=== PATIENT | female | born 1950 | race African-American/Black ===

== ENCOUNTER 2021-08-31 02:37 | Day surgery (SDC) | payer OTHER, SELFPAY ==
--- NOTE | 2021-08-25 09:46 | PC.NURSE ---
Report to the Outpatient Waiting Room, entrance under the green pavilion located off [facility], at time __0930 on date _08/31/21 . OR Time: _1130 . - You and your visitor will be asked a series of questions to screen for COVID 19 for your protection. - Only one visitor is allowed at this time. - The patient visitor is requested to leave or wait in car when not with patient. - A mask is required within the hospital. Patients may have clear liquids (water, carbonated beverages, clear teas, apple juice) until 3 hours prior to surgery with a maximum of 20 ounces. - No food from midnight until time of surgery - Infants may have breast milk until 4 hours before surgery, infant formula 6 hours prior to surgery. - Children will be allowed to drink immediately following surgery. If applicable, please bring a bottle or sippy cup to assist with drinking. Juice, water, soda, and popsicles are readily available. For infants on formula, please bring formula the day of surgery. Pacifiers are allowed. Take the following medications with a SIP of water the morning of surgery: __FELODIPINE,TIMOLOL EYE DROP, Medications to discontinue per physician ____ALL VITAMINS AND SUPPLEMENTS 3 DAYS PRE OP Date to take last dose__08/27/21 Please no make-up, nail [place], hairspray, perfume, deodorant, or body powder the day of surgery. No jewelry (including any body piercings) or valuables the day of surgery, leave them at home. Please take a shower or bath the night before, or the morning of, surgery with an antibacterial soap. Wear comfortable, loose fitting clothing. Children are encouraged to wear pajamas. - Jewelry must be removed prior to entering the operating room. Rings and piercings that are not removed may be cut off. - The hospital will not accept responsibility for valuables. - Please leave all valuables, including medications, at home the day of surgery. If you are going home after surgery, a licensed tram driver must drive you home. - NO public transportation without another adult. - We recommend that an adult stay with you for 24 hours following discharge. - We also recommend that you do not drive, make important decision, drink alcoholic beverages, or take any drugs that were not prescribed by your health care provider for at least 24 hours after your discharge time. For Pediatric surgeries, we recommend two adults accompany the child home (only one inside the building at this time). Follow any additional instructions given to you from your surgeon. If you or anyone in your household have experienced Covid symptoms in the past week, please notify your surgeon or the nurse liaison at the phone number below for possible testing. Telephone instructions given to _PATIENT and asked if any additional questions and then verbalized understanding. Patient advised to call surgeon office or pre surgery nurse liaison [phone] if any additional questions.
[2021-08-25 10:49] VITALS: BMI 33.8
--- NOTE | 2021-08-31 08:35 | WPDHPUPDATE1 ---
History and Physical Update Update Date/Time: 08/31/21 08:35 History and Physical has been reviewed, including an updated exam of the patient. There are NO changes in the patient's condition. Risks, benefits, and alternatives have been discussed and questions answered. Patient agrees to proceed with procedure.
--- NOTE | 2021-08-31 08:35 | PM.HPGS ---
History of Present Illness History of Present Illness Consent: Risks, benefits, and alternatives have been discussed and questions answered. Patient agrees to proceed with procedure. Chief complaint: post menopausal bleeding Narrative: Julia Ramirez is a 71 year old female with an episode of vaginal bleeding in late July. Patient also had uterine cramping. The bleeding lasted for 3 days and was light. It was recommended to proceed with D&C hysteroscopy. Risks of infection, bleeding, perforation, and possible pathology were reviewed. Risks were accepted and patient agrees to proceed. Patient did receive preoperative clearance from her primary physician Dr. Jang. Review of Systems Constitutional: Constitutional: Reports headache(s) Respiratory: Respiratory: Reports cough and Reports wheezing Gastrointestinal: Gastrointestinal: Reports constipation and Reports nausea Genitourinary: Genitourinary: Reports urinary incontinence Musculoskeletal: Musculoskeletal: Reports back pain and Reports arthralgias [facility] Past Medical History Medical History (Updated 08/31/21 @ 08:43 by Prema Myers MD) Atrial fibrillation Congestive heart failure COPD (chronic obstructive pulmonary disease) GERD (gastroesophageal reflux disease) HTN (hypertension) Hyperlipidemia Interstitial cystitis Mitral valve prolapse (normal spontaneous vaginal delivery) X3 Sleep apnea Surgical History Surgical History (Updated 08/31/21 @ 08:41 by Prema Myers MD) H/O laparoscopy History of hysteroscopy 2005 and 2007 S/P breast biopsy, bilateral 2001 resulting in left lymphedema Social History Social History Smoking status: Never smoker Living arrangements: with family Spiritual care concerns: No Meds Home Medications and Allergies Home Medications Medication Instructions Recorded Confirmed Type albuterol sulfate 90 mcg/actuation 2 puff inhalation QID PRN 08/25/21 08/25/21 History aerosol inhaler (ProAir HFA) Shortness Of Breath aspirin 81 mg tablet,delayed 81 mg PO HS 08/25/21 08/25/21 History release atenolol 50 mg tablet 0.5 tablet PO HS 08/25/21 08/25/21 History atenolol 50 mg-chlorthalidone 25 1 tablet PO QAM 08/25/21 08/25/21 History mg tablet azelastine 137 mcg (0.1 %) nasal 1 spray intranasal Q12H 08/25/21 08/25/21 History spray aerosol biotin 5,000 mcg disintegrating 5,000 mcg PO DAILY 08/25/21 08/25/21 History tablet cholecalciferol (vitamin D3) 100 100 mcg PO DAILY 08/25/21 08/25/21 History mcg (4,000 unit) tablet cyclobenzaprine 10 mg tablet 1 tablet PO PRN PRN Muscle Spasm 08/25/21 08/25/21 History diclofenac sodium 1 % topical gel 1 ea topical PRN PRN Pain 08/25/21 08/25/21 History docusate sodium 100 mg capsule 100 mg PO DAILY 08/25/21 08/25/21 History (Stool Softener) felodipine 5 mg tablet,extended 1 tablet PO QAM 08/25/21 08/25/21 History release 24 hr furosemide 20 mg tablet 1 tablet PO DAILY 08/25/21 08/25/21 History latanoprost 0.005 % eye drops 1 drp EACH EYE HS 08/25/21 08/25/21 History pentosan polysulfate sodium 100 mg 1 cap PO TID 08/25/21 08/25/21 History capsule (Elmiron) timolol 0.25 % eye drops 1 drp EACH EYE Q12H 08/25/21 08/25/21 History tramadol 50 mg tablet 1 tablet PO PRN PRN Pain 08/25/21 08/25/21 History vitamin B complex (B 1 tablet PO DAILY 08/25/21 08/25/21 History Complex-Vitamin B12 tablet) Allergies Allergy/AdvReac Type Severity Reaction Status Date / Time codeine Allergy Mild Vomiting Unverified 08/25/21 09:26 meperidine Allergy Mild HALLUCINATI Unverified 08/25/21 09:26 ONS levofloxacin AdvReac Joint Pain Verified 08/25/21 09:27 Exam Const: General: healthy appearing and alert Orientation/consciousness: patient oriented x3 GI: GI Palp: Yes Soft to palpation, No Tenderness to palpation present (GI) and No Palpable mass present : External Female Exam: normal external appearance Speculum Exam - Vagi
[2021-08-31 09:43] VITALS: BP 129/63; PULSE 64; RESP 18; TEMP 36.3; O2SAT 99
--- NOTE | 2021-08-31 09:49 | WPDANESEPPF ---
Anes - Initial Pre Proc Eval Procedure: Operation Date: 08/31/21 11:30 Proposed Procedures p Hysteroscopy Dilation and Curettage - Prema Myers MD Date/Time: 08/31/21 09:49 Surgeon: Prema Myers MD Pre Op Diagnosis: post menopausal bleeding Patient Data Age: 71 Gender: F Height: 1.57 m Weight: 83.9 kg Last Vital Signs Temp 36.3 C L 08/31/21 09:43 Pulse 64 08/31/21 09:43 Resp 18 08/31/21 09:43 BP 129/63 08/31/21 09:43 Pulse Ox 99 08/31/21 09:43 O2 Del Method Room Air 08/31/21 09:43 Allergies Allergy/AdvReac Type Severity Reaction Status Date / Time codeine Allergy Mild Vomiting Unverified 08/25/21 09:26 meperidine Allergy Mild HALLUCINATI Unverified 08/25/21 09:26 ONS levofloxacin AdvReac Joint Pain Verified 08/25/21 09:27 Home Medications Medication Instructions Recorded Confirmed Type albuterol sulfate 90 mcg/actuation 2 puff inhalation QID PRN 08/25/21 08/25/21 History aerosol inhaler (ProAir HFA) Shortness Of Breath aspirin 81 mg tablet,delayed 81 mg PO HS 08/25/21 08/25/21 History release atenolol 50 mg tablet 0.5 tablet PO HS 08/25/21 08/25/21 History atenolol 50 mg-chlorthalidone 25 1 tablet PO QAM 08/25/21 08/25/21 History mg tablet azelastine 137 mcg (0.1 %) nasal 1 spray intranasal Q12H 08/25/21 08/25/21 History spray aerosol biotin 5,000 mcg disintegrating 5,000 mcg PO DAILY 08/25/21 08/25/21 History tablet cholecalciferol (vitamin D3) 100 100 mcg PO DAILY 08/25/21 08/25/21 History mcg (4,000 unit) tablet cyclobenzaprine 10 mg tablet 1 tablet PO PRN PRN Muscle Spasm 08/25/21 08/25/21 History diclofenac sodium 1 % topical gel 1 ea topical PRN PRN Pain 08/25/21 08/25/21 History docusate sodium 100 mg capsule 100 mg PO DAILY 08/25/21 08/25/21 History (Stool Softener) felodipine 5 mg tablet,extended 1 tablet PO QAM 08/25/21 08/25/21 History release 24 hr furosemide 20 mg tablet 1 tablet PO DAILY 08/25/21 08/25/21 History latanoprost 0.005 % eye drops 1 drp EACH EYE HS 08/25/21 08/25/21 History pentosan polysulfate sodium 100 mg 1 cap PO TID 08/25/21 08/25/21 History capsule (Elmiron) timolol 0.25 % eye drops 1 drp EACH EYE Q12H 08/25/21 08/25/21 History tramadol 50 mg tablet 1 tablet PO PRN PRN Pain 08/25/21 08/25/21 History vitamin B complex (B 1 tablet PO DAILY 08/25/21 08/25/21 History Complex-Vitamin B12 tablet) Patient hx anesthesia problems: none Family hx anesthesia problems: none Results Review: All pre-operative results and documents have been reviewed as part of the pre-operative evaluation. FOR[facility]LY [facility], [facility] Past Medical History Medical History Atrial fibrillation Congestive heart failure COPD (chronic obstructive pulmonary disease) GERD (gastroesophageal reflux disease) HTN (hypertension) Hyperlipidemia Interstitial cystitis Mitral valve prolapse (normal spontaneous vaginal delivery) X3 Sleep apnea Surgical History Surgical History H/O laparoscopy History of hysteroscopy 2005 and 2008 S/P breast biopsy, bilateral 2001 resulting in left lymphedema Social History Social History Smoking status: Never smoker Living arrangements: with family Spiritual care concerns: No Anes - Eval Final PreProcedure Day of Procedure 08/31/21 09:49 Patient weight: obese Heart: regular rate and rhythm Lungs: clear to auscultation Airway: Mallampati scale class III Neurological: alert and oriented Last oral intake: >/= 8 hours ASA classification: III Anesthetic plan: proceed Anesthesia type and monitoring: general GIVS and standard monitoring Results Review: All pre-operative results and documents have been reviewed as part of the pre-operative evaluation. Informed Consent: The patient's anesthetic plan and its attendant risks and b
[2021-08-31] MEDS: ACETAMINOPHEN 500 MG TABLET 1000 MG PO (10:10)
[2021-08-31] MEDS: LACTATED RINGERS 1,000 ML 30 ML IV CONT (10:40)
[2021-08-31 11:31] VITALS: BP 108/65; PULSE 67; RESP 16; O2SAT 98
--- NOTE | 2021-08-31 11:31 | P.OP_ITS ---
Procedure Note - Detailed Date of Procedure 08/31/21 Pre-op Diagnosis post menopausal bleeding Post-op Diagnosis Same Procedure Performed D&C hysteroscopy Surgeon Prema Myers MD Anesthesia MAC and Local Findings Uterus sounds to 7cm and appears grossly atrophic Description of Procedure The patient is taken to the operating room and placed under anesthesia in the dorsal lithotomy position. She was prepped and draped in usual sterile fashion. Estelline speculum is placed in the vagina and the cervix grasped on the anterior lip with a tenaculum. The cervix is injected in each quadrant with 1% lidocaine. The uterus is sounded to 7cm. The cervix is serially dilated to an 8 Hegar. The hysteroscope was placed with no abnormalities noted it is removed. The medium sharp curette is used to curette the endometrium until a good uterine cry was noted in all areas. All instruments are removed. Sponge, needle, and instrument counts are correct per the OR staff. Patient is awakened from anesthesia and taken to recovery in stable condition. Estimated Blood Loss 5 Drains No Packing No Pathology Yes (Endometrial curettings) Complications No immediate complications Condition Stable Disposition PACU
[2021-08-31 12:00] VITALS: BP 127/81; PULSE 53
[2021-08-31 12:30] VITALS: BP 137/80; PULSE 60
== END 2021-08-31 12:50 | disposition home or self-care (01) ==
PROVIDERS: PCP Family Medicine; Visit Provider Obstetrics & Gynecology Gynecology
PROC: 0U5B8ZZ Destruction of Endometrium, Via Natural or Artificial Opening Endoscopic (ICD-10-PCS; CPT 58563; principal; 2021-08-31 11:30)
DX: N95.0 Postmenopausal bleeding (principal); I11.0 Hypertensive heart disease with heart failure; I50.9 Heart failure, unspecified; I48.91 Unspecified atrial fibrillation; J44.9 Chronic obstructive pulmonary disease, unspecified; K21.9 Gastro-esophageal reflux disease without esophagitis; E78.5 Hyperlipidemia, unspecified; I34.1 Nonrheumatic mitral (valve) prolapse; G47.30 Sleep apnea, unspecified; Z79.51 Long term (current) use of inhaled steroids; Z79.82 Long term (current) use of aspirin; E66.9 Obesity, unspecified; Z68.33 Body mass index [BMI] 33.0-33.9, adult
CPT/HCPCS: 58558; 88305; A9270; J2250; J2704; J3010; J7120